=== PATIENT | male | born 1995 | race Caucasian/White ===

== ENCOUNTER 2021-09-06 18:19 | Outpatient (REF) | payer BC, SELFPAY ==
[2021-09-08 12:43] LABS: COVID-19 RT-PCR UVMMC Result Negative (Negative)
== END 2021-09-06 18:20 | disposition home or self-care (01) ==
LOC: LBN 18:19
PROVIDERS: Visit Provider Nurse Practitioner Family
DX: Z20.822 Contact with and (suspected) exposure to COVID-19 (principal); R09.89 Other specified symptoms and signs involving the circulatory and respiratory systems; R05.8 Other specified cough
CPT/HCPCS: U0003

== ENCOUNTER 2021-09-16 11:22 | Outpatient (REF) | payer BC, SELFPAY ==
[2021-09-17 13:11] LABS: COVID-19 RT-PCR UVMMC Result Negative (Negative)
== END 2021-09-16 11:23 | disposition home or self-care (01) ==
LOC: LBN 11:22
PROVIDERS: Visit Provider Physician Assistant
DX: Z20.822 Contact with and (suspected) exposure to COVID-19 (principal)
CPT/HCPCS: U0003